=== PATIENT | female | born 1990 | race Caucasian/White ===

== ENCOUNTER → 2017-07-13 | Outpatient (CLI) | payer OTHER | LOC: OD 17:09 | PROVIDERS: ATTEND Otolaryngology | DX: J30.9 Allergic rhinitis, unspecified (principal) | CPT/HCPCS: 36415; 82785; 86003 ==

== ENCOUNTER → 2017-08-01 | Outpatient (CLI) | payer OTHER ==
--- NOTE | 2017-08-01 17:34 | RADIOLOGY REPORT (SQ) ---
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 TECHNIQUE: Post IV contrasted scanning from skull base through lung apices with review of bone, soft tissue and lung windows. Reconstructed coronal and sagittal MPR images reviewed. All images stored on PACS. All CT scanners at this facility use dose modulation, iterative reconstruction, and/or weight based d osing when appropriate to reduce radiation dose to as low as reasonably achievable (ALARA). [facility]: Dose Right [facility]: CareDose [facility]: Dose Right [facility]: Teradose 4D [facility]: [employer] CONTRAST TYPE AND DOSE: contrast/concentration: Isovue 370.00 mg/ml; Total Contrast Delivered: 75.0 ml; Total Saline Delivered: 55.0 ml RENAL FUNCTION: None required. The patient is less than 50 years old. RADIATION DOSE: 55 mGy LIMITATIONS: None. FINDINGS: SKULL BASE: Intact. Inferior brain parenchyma in the field of view is normal. MAJOR SALIVARY GLANDS: No solid or cystic masses. No inflammatory changes. LYMPHADENOPATHY: No adenopathy. MUCOSAL MASSES OR ASYMMETRY: No mucosal masses or asymmetry. LARYNX/CORDS: No abnormal findings. VASCULAR STRUCTURES: The major vessels are patent. LUNG APICES: Clear. BONES: Intact. THYROID: Normal size. No masses. PARANASAL SINUSES: Frontal sinuses demonstrate mucous membrane thickening at the fronto ethmoid junct ion on the right side. Left frontal sinus unremarkable. There is opacification of the right ethmoid air cells. Mucous membrane thickening anterior left ethm oid air cells. There is mucous membrane thickening occluding the right maxillary sinus outlet on coronal images 17-2 1. Mucous membrane thickening floor right maxillary sinus. Mucous membrane thickening along the floor of the left maxillary sinus and left maxillary sinus outle t with narrowing left maxillary sinus outlet. Mild mucous membrane thickening in the sphenoid sinuses. Middle ear cavities and mastoid air cells are clear. OTHER: Patient is having endoscopic sinus surgery on Tuesday. We will call the patient back for nonco ntrast CT of the sinuses with brain lab protocol, and an addendum to this report will be generated. These findings were discussed with Dr. Almaguer IMPRESSION: Inflammatory changes in the paranasal sinuses. No abnormalities in the neck soft tissues. TECHNICAL DOCUMENTATION: JOB ID: [id number] Quality ID # [id number]: Final reports with documentation of one or more dose reduction techniques (e.g., Au tomated exposure control, adjustment of the mA and/or kV according to patient size, use of iterative reconstruction technique) 2010 [employer]- All Rights Reserved Reading location - IP/workstation name: [facility]
== END ==
LOC: RAD 13:11
PROVIDERS: ATTEND Otolaryngology
DX: J33.9 Nasal polyp, unspecified (principal); J34.2 Deviated nasal septum; D35.1 Benign neoplasm of parathyroid gland
CPT/HCPCS: 70492

== ENCOUNTER → 2017-08-02 | Outpatient (CLI) | payer OTHER ==
--- NOTE | 2017-08-02 12:08 | RADIOLOGY REPORT (SQ) ---
EXAM DESCRIPTION: CT SINUSES FOR ENT COMPLETED DATE/TIME: 08/02/2017 11:05 am REASON FOR STUDY: *FUSION* HYPERTROPHY OF NASAL TURBINATES (J34.3), NASAL POLYP (J33.9), YEMI J34.3 HYPERTROPHY OF NASAL TURBINATES J33.9 NASAL POLYP, UNSPECIFIED J34.2 DEVIATED NASAL SEPTUM COMPARISON: CT soft tissue neck 08/01/2017 TECHNIQUE: Noncontrast scanning through the paranasal sinuses using bone algorithm. Reconstructed MPR images reviewed. All images stored on PACS. Images acquired for image guided surgery. All CT scanners at this facility use dose modulation, iterative reconstruction, and/or weight based d osing when appropriate to reduce radiation dose to as low as reasonably achievable (ALARA). [facility]: Dose Right [facility]: CareDose [facility]: Dose Right [facility]: Teradose 4D [facility]: [employer] RADIATION DOSE: 45 mGy. FINDINGS: NASAL PASSAGES: Clear. No gross polyps or masses. OSTEOMEATAL UNITS AND NASOFRONTAL DUCTS: Bilateral maxillary outlets are Occluded by mucous membrane thickening No agger nasi or Hannah cells. Right fronto ethmoid junction opacified with fluid. Left fronto ethmoid junction clear MAXILLARY SINUSES: Circumferential mucous membrane thickening without air-fluid levels. Bilateral max illary sinus outlets are occluded by mucous membrane thickening ETHMOID SINUSES: Right-sided ethmoid air cells are filled with fluid/mucous membrane thickening. Lef t ethmoid air cells are unremarkable SPHENOID SINUSES: Well-pneumatized and clear. No sphenoethmoid air cells or pneumatized pterygoid rec ess. No pneumatized dorsal sella. FRONTAL SINUSES: Mucous membrane thickening both frontal sinuses right greater than left. MASTOID AIR CELLS: Clear. ORBITS: Normal and symmetrical. NASAL SEPTUM: Mild rightward lower, leftward upper nasal septal deviation with small rightward nasal septal spur TEMPOROMANDIBULAR JOINTS: Normal. TURBINATES: No pneumatized turbinates. MUCOPERIOSTEAL THICKENING: No. OTHER: No other significant findings. IMPRESSION: Inflammatory changes as above TECHNICAL DOCUMENTATION: JOB ID: [id number] Quality ID # [id number]: Final reports with documentation of one or more dose reduction techniques (e.g., Au tomated exposure control, adjustment of the mA and/or kV according to patient size, use of iterative reconstruction technique) 2010 [employer]- All Rights Reserved Reading location - IP/workstation name: [employer] [employer] [email or web address]
== END ==
LOC: RAD 10:51
PROVIDERS: ATTEND Otolaryngology
DX: J33.9 Nasal polyp, unspecified (principal); J34.3 Hypertrophy of nasal turbinates; J34.2 Deviated nasal septum
CPT/HCPCS: 70486

== ENCOUNTER 2017-08-05 07:38 | Day surgery (SDC) | payer OTHER ==
[~2017-08-05 07:38] MED LIST: DEXAMETHASONE SOD PHOS INJ 10 MG/1 ML VIAL ONE; FENTANYL CITRATE INJ/PF 100 MCG/2 ML AMPUL ONE; HYDROMORPHONE HCL INJ/PF 2 MG/ML AMPULE ONE; LACTATED RINGERS 1000 ML IV PRN; LIDOCAINE 2% INJ-PF (20 MG/ML) 10 ML AMPUL ONE; MIDAZOLAM 2 MG/2 ML INJ ONE; ONDANSETRON HCL INJ/PF 4 MG/2 ML SDV ONE; PROPOFOL INJ 200 MG/20 ML VIAL IV ONE; SUCCINYLCHOLINE CHLORIDE INJ 200 MG/10 ML VIAL ONE
[2017-08-05] MEDS ORDERED: OXYMETAZOLINE HCL 0.05% NASAL SPRAY 15 ML BOTTLE ONE (08:02)
[2017-08-05] MEDS ORDERED: BUPIVACAINE HCL 0.5%/EPI 1:200000 INJ 1.8 ML CARTRIDGE ONE ×2 (08:02→09:07)
[2017-08-05] MEDS ORDERED: CEFAZOLIN 1 GM/D5W RTU 1 GM/50 ML RTUPB IV PRN (08:09)
[2017-08-05] MEDS ORDERED: CEFAZOLIN 1 GM/D5W RTU 1 GM/50 ML RTUPB IV ONE (08:10)
[2017-08-05] MEDS ORDERED: SCOPOLAMINE HYDROBROMIDE 1.5 MG PATCH.TD72 TD PRN (08:36)
[2017-08-05] MEDS ORDERED: LIDOCAINE 0.5% INJ-PF (5 MG/ML) 50 ML SDV SUBCUT PRN (09:00)
[2017-08-05] MEDS ORDERED: MINERAL OIL/PETROLATUM,WHITE OPH OINT 3.5 GM OU PRN (09:28)
[2017-08-05] MEDS ORDERED: BUPIVACAINE HCL 0.5%-EPI 1:200000 INJ/PF 30 ML VIAL ONE (09:29)
[2017-08-05] MEDS: FENTANYL CITRATE INJ/PF 100 MCG/2 ML AMPUL ONE ×3 (10:45→14:16)
[2017-08-05] MEDS ORDERED: MINERAL OIL (STERILE) 10 ML VIAL ONE (11:09)
[2017-08-05] MEDS ORDERED: BALANCED SALT IRRIG SOLN COMB2 15 ML BOTTLE ONE ×2 (12:47→12:49)
--- NOTE | 2017-08-07 20:24 | [facility]ARE OPERATIVE REPORT E ---
[facility] Operative Report NAME: JASON MONTELONGO AGE: 27Y DATE OF SURGERY: 08/05/2017 ROOM: PREOPERATIVE DIAGNOSES: 1. CHRONIC SINUSITIS/SINUS DISEASE. 2. ACUTE RECURRENT SINUSITIS. 3. BILATERAL NASAL POLYP DISEASE. 4. HISTORY OF NASAL TRAUMA WITH RESULTING NASAL DEFORMITIES. 5. NASOSEPTAL DEVIATION, ACQUIRED. 6. CHRONIC NASAL DYSPNEA. 7. CHRONIC NASAL PAIN. 8. BILATERAL TURBINATE HYPERTROPHY. POSTOPERATIVE DIAGNOSES: 1. CHRONIC SINUSITIS/SINUS DISEASE. 2. ACUTE RECURRENT SINUSITIS. 3. BILATERAL NASAL POLYP DISEASE. 4. HISTORY OF NASAL TRAUMA WITH RESULTING NASAL DEFORMITIES. 5. NASOSEPTAL DEVIATION, ACQUIRED. 6. CHRONIC NASAL DYSPNEA. 7. CHRONIC NASAL PAIN. 8. BILATERAL TURBINATE HYPERTROPHY. OPERATIONS: 1. Bilateral image guidance functional endoscopic sinus surgery. 2. Bilateral maxillary antrostomies with tissue removal with bilateral transnasal rigid surgical endoscopy. 3. Bilateral frontal sinusotomies performed intranasal with bilateral transnasal rigid surgical endoscopy, and with Propel contour drug-eluting stent, bilateral. 4. Right total ethmoidectomy (anterior and posterior) with tissue removal, with transnasal surgical rigid endoscopy, and with a Propel ethmoid steroid-eluting stent placement. 5. Left anterior ethmoidectomy with transnasal surgical rigid endoscopy, and with Propel ethmoid steroid-eluting stent placement. 6. Bilateral nasal passage polypectomies with transnasal rigid surgical endoscopy. 7. Endonasal septal rhinoplasty addressing the bony pyramid and the lower cartilages with nasal tip elevation and stabilization. 8. Bilateral middle turbinate reduction. 9. Bilateral superior turbinate reduction. SURGEON: LILLY TORRES D.O. ANESTHESIA: General endotracheal tube. ANESTHESIA STAFF: EUNICE Gallegos. ESTIMATED BLOOD LOSS: 200 mL. FLUIDS: IV fluids 1000 mL. COMPLICATIONS: None. DRAINS: None. SPONGE COUNT: Verified. NEEDLE COUNT: Verified. MATERIALS FORWARDED SPECIMEN: 1. Bilateral maxillary sinus tissue, rule out polyp disease. 2. Bilateral nasal passage tissue, rule out polyp disease. 3. Right ethmoid sinus area tissue, rule out polyp disease. FINDINGS: 1. Nasal deformities, acquired, consisting of dorsal irregularities involving bone greater than cartilage, and left caudal septal margin displacement to the left nasal vestibule, with displacement as well of the medial crura and medial crural footplate, resulting in a slit-like left nasal passage opening. 2. Moderate to severe right nasoseptal deviation involving bone and cartilage, along with a maxillary crest spur and septal spur. 3. Bilateral nasal passage polyp disease, right greater than left. 4. Bilateral ethmoid sinus polyp disease. 5. Bilateral maxillary sinus and ostiomeatal complex polyp disease. 6. Bilateral frontal sinus recess and frontal sinus polyp disease. 7. Bilateral middle turbinate hypertrophy with polyp disease/polypoid changes. 8. Bilateral inferior turbinate hypertrophy, left greater than right. INDICATIONS: This is a 27-year-old white female who was seen and evaluated in the [facility] office. The patient had been referred for and she complained of a history of chronic and acute recurrent sinus disease, findings consistent with sinus and nasal polyp disease, allergies, a history of nasal trauma, resulting in nasal deformities and chronic nasal pain, and history of chronic nasal dyspnea over the years. The patient also reports a decreased sense of smell over the years. The patient underwent clinic-based nasal flexible endoscopy and CT sinus imaging with findings consistent with a history of nasal trauma with resulting nasal deformities and sinonasal polyp disease. After extensive discussion with the patient, recommendation and plan was made to proceed with image guidance functional endoscopic sinus surgery, endonasal septal rhinoplasty, and bilateral turbinate reductions. The procedures and all of their risks and complications were all discussed in detail with the patient. She voiced an understanding of the described surgical plan, agreed to proceed and consent was obtained. PROCEDURE: The patient was taken to the main operating room and placed on the operating room table in the supine position. Appropriate monitors were placed. Using mask and IV access, general anesthesia was induced. The patient was transorally intubated without difficulty. The patient and table was moved and positioning was performed in preparation for sinus and nasal surgery. The patient underwent nasal examination with injection of local anesthetic with epinephrine to establish a nasal block. One neuro tania that was Afrin-soaked was placed per nasal passage. The patient was then prepped and draped in the usual fashion for sinus and nasal surgery. Image guidance system was setup and tested appropriately before beginning the case. At this point, the Afrin-soaked neuro patties were removed. The patient underwent a sanford-transfixion incision with elevation of the mucoperichondrial and mucoperiosteal flaps without difficulty. The bony cartilaginous junction was identified and divided, with removal of the most deviated portions of septal cartilage and bone. Flaps were also elevated to allow for removal of the maxillary crest spur and septal spur using nasal and sinus surgical instruments, along with the assistance of rigid nasal endoscopy. There was a greater than 1.5 x 1.5 cm cartilaginous L-strut that was preserved. The caudal septal cartilage was mobilized from the maxillary crest and anterior nasal spine. Excessive cartilage was trimmed. There was a precise pocket created between the medial crural footplates to bring the caudal septal margin into. At this point, the turbinate bipolar wand was used to make 2 passes in each inferior turbinate. The anterior aspect of the turbinates was entered with Isaias scissors, followed by elevation of tissue in the submucosal plane with a Mcguffey elevator. The turbinate microdebrider system was then used at a setting of 1500 rpm to perform submucous resection on each side. The stair elevator was used to outfracture each inferior turbinate. Excessive/redundant mucosa was trimmed and the mucosal margins were reapproximated with chromic suture. At this point, the image guidance functional endoscopic sinus surgery portion of the case was addressed in the following manner. There was local anesthetic with epinephrine that was injected intranasally on each side through a spinal needle. During this portion of the case, sinus surgical instrumentation and the microdebrider on a setting of 3000 rpm was used. Bilateral rigid surgical nasal endoscopy was continued to be used. The anterior aspect of each middle turbinate was resected, along with microdebrider debulking of polypoid changes. The maxillary antrostomies with tissue removal were performed on each side without difficulty. The right total ethmoidectomy (anterior and posterior) and the left anterior ethmoidectomy were performed without difficulty. The intranasal frontal sinus sinusotomies with tissue removal were performed without difficulty. At this point, there was thorough irrigation with normal saline, followed by suctioning. At this point, the sinuses were packed with Afrin-soaked neuro patties. At this point, the rhinoplasty portion of the case was addressed in the following manner. There were intercartilaginous incisions performed on each side, followed by elevation of the nasal dorsum soft tissue envelope in a subperiosteal plane. Dorsal rasp work was performed to address the dorsal deformities/irregularities. Next, there were incisions performed over the medial crura/medial crural footplate areas on each side. There was elevation in a subperichondrial plane overlying the cartilage. At this point, the nose was again thoroughly suctioned. Afrin-soaked neuro patties were removed. There was reasonable hemostasis noted. At this point, there was 1 Propel contour stent placed per side and 1 Propel ethmoid stent placed per side, which was performed under direct visualization with transnasal surgical rigid endoscopy. Once the stents were all in place, there was cartilage placed back between the mucosal flaps to be banked. There was a right mucosal flap rent that was repaired with chromic suture. The caudal septal cartilage was repositioned in the midline and fixed at the anterior nasal spine using 5-0 Prolene suture. The caudal septal margin was brought between the medial crura within the precise pocket that was created. There was a chip elevation/stabilization suture placed using 5-0 Prolene suture. Once complete, the nose was again thoroughly irrigated and suctioned. At this point, all incisions were reapproximated with chromic suture. Redundant/excess tissue was trimmed accordingly during closure. At this point, there was 1 Aguilar silicone nasal splint with Bacitracin ointment placed per side. These were secured at the caudal aspect with 4-0 Prolene suture. Next, the patient's nose was cleaned and dried, followed by placement of Mastisol and Steri-Strips over the nasal dorsum. The patient was then returned to the Anesthesia staff and was allowed to emerge from general anesthesia. The patient was extubated in the main operating room and was transported to the post anesthesia recovery unit in stable condition. There were no complications. DICTATING PHYSICIAN: LILLY TORRES D.O. [id number] PHY#: [id number] ID: [id number] JOB#: [id number] ACCT: [id number] cc:LILLY TORRES D.O. >
== END 2017-08-05 15:33 | disposition home or self-care (01) ==
LOC: SC 07:38
PROVIDERS: ATTEND Otolaryngology
DX: J32.9 Chronic sinusitis, unspecified (principal); J33.9 Nasal polyp, unspecified; J34.2 Deviated nasal septum; J34.3 Hypertrophy of nasal turbinates; R06.09 Other forms of dyspnea; M95.0 Acquired deformity of nose; J30.1 Allergic rhinitis due to pollen; G89.21 Chronic pain due to trauma; J34.89 Other specified disorders of nose and nasal sinuses; J33.8 Other polyp of sinus; F17.210 Nicotine dependence, cigarettes, uncomplicated; Z88.1 Allergy status to other antibiotic agents; Z79.899 Other long term (current) drug therapy
CPT/HCPCS: 88304 ×2; 31256; 31276; 31255; 31254; 30140; 30520; J2250; J3490 ×7; J0690; J3010; J1170; J0330; J2405; J2704; J1100; 160